=== PATIENT | male | born 1970 | race African-American/Black ===

== ENCOUNTER 2017-03-21 12:55 | Emergency (ER) | payer OTHER ==
[~2017-03-21] VITALS: Ht 182.9 cm; Wt 74.8 kg
[~2017-03-21 12:55] MED LIST: FLEXERIL10 MG PO; IBUPROFEN800 MG PO
== END 2017-03-21 14:11 | disposition home or self-care (01) ==
LOC: CFTX 12:55 → CED 12:55 → CFTX 13:50
DX: J06.9 Acute upper respiratory infection, unspecified (principal); I10 Essential (primary) hypertension; R23.8 Other skin changes; F17.210 Nicotine dependence, cigarettes, uncomplicated; Z79.899 Other long term (current) drug therapy
CPT/HCPCS: 87651; 99283